=== PATIENT | male | born 1970 | race Caucasian/White ===

== ENCOUNTER 2022-03-01 23:33 | Emergency (ER) | payer OTHER ==
[2022-03-02 01:15] LABS: Bilirubin Neg (Negative); Blood, Urine Negative (Negative); Clarity Clear (Clear); Glucose, Urine (Dipstick) Normal (Negative); Ketone, Urine Negative (Negative); Leukocyte Negative (Negative); Nitrite Negative (Negative); Protein, Urine (Dipstick) Negative (Neg-Trace); Specific Gravity, Urine 1.015 (1.005-1.030); Urobilinogen Normal mg/dL (Less than 2)
[2022-03-02] MEDS ORDERED: Tamsulosin HCl 0.4 MG CAP PO SCH (01:15)
== END 2022-03-02 01:46 | disposition home or self-care (01) ==
LOC: CSHERS 23:33
DX: R22.2 Localized swelling, mass and lump, trunk (principal); R39.198 Other difficulties with micturition; E78.00 Pure hypercholesterolemia, unspecified; J44.9 Chronic obstructive pulmonary disease, unspecified; F17.210 Nicotine dependence, cigarettes, uncomplicated
CPT/HCPCS: 81003; 99284